=== PATIENT | female | born 1970 | race African-American/Black ===

== ENCOUNTER 2016-08-10 18:17 | Emergency (ER) | payer OTHER ==
--- NOTE | ~2016-08-10 | CR72 ---
[facility] A Service of [facility] RADIOLOGY TEXT RESULTS PATIENT: MAURICE BELTRÁN LOCATION: SED : 66 UNIT #: [id number] AGE: [address]: Alfredo Alvarez MD SEX: F ORDER DR: [id number] [place] [id number] MR#: [id number] Acc #: [id number] NAME: MAURICE BELTRÁN : 1970 SEX: F STUDY DATE/TIME: 08/10/2016 18:19 UNIT: SED ROOM: STUDY DESCRIPTION: CR Chest Single View Portable Attending Physician: Alfredo Alvarez M.D. Ordering Physician: Jeremías Chery M.D. Primary Care Physician: Conor Orantes Sr., M.D. MEDICAL IMAGING REPORT This report is preliminary unless electronic signature is present. EXAM Portable AP view of the chest COMPARISON May and January 04, 2011. HISTORY 46-year-old female with cough and chest congestion for 30 days. History of asthma. FINDINGS Cardiomediastinal silhouette is within normal limits. Stable calcified granulomas in the right lung. No evidence of pneumothorax, pleural effusion or acute airspace disease. IMPRESSION 1. No acute radiographic abnormality of the chest. 2. Stable calcified granulomas in the right lung. Dictated by... Ad Matos M.D. THIS IS AN ELECTRONICALLY VERIFIED REPORT Ad Matos M.D. at 08/11/2016 5:22 PM BLM/pcl TD: 08/10/2016 21:49 JOB #: [id number] [facility] A Service [facility] RADIOLOGY TEXT RESULTS PATIENT: MAURICE BELTRÁN LOCATION: SED : 66 UNIT #: [id number] AGE: [address]: Alfredo Alvarez MD SEX: F ORDER DR: MEDICAL IMAGING REPORT Page 1 of 1
--- NOTE | ~2016-08-10 | EKG ---
PATIENT: MAURICE BELTRÁN UNIT #: [id number] Ventricular Rate: 85 BPM Atrial Rate: 85 BPM P-R Interval: 308 ms QRS Duration: 84 ms Q-T Interval: 352 ms QTC Calculation(Bezet): 418 ms P Ovid: 46 degrees Calculated R Ovid: 21 degrees Calculated T Ovid: 17 degrees Diagnosis Line: Sinus rhythm with 1st degree A-V block Diagnosis Line: Possible Left atrial enlargement Diagnosis Line: Borderline ECG Diagnosis Line: When compared with ECG of 05-DEC-2014 20:06, Diagnosis Line: UT interval has increased Diagnosis Line: Confirmed by STALIN YOU MD ([id number]) on Diagnosis Line: 08/13/2016 12:03:17 PM INTERPRETING MD: AVELINO PHAN
[~2016-08-10 18:17] MED LIST: ALBUTEROL17 GM; ALBUTEROL17 GM INH; B/P PILL; CYMBALTA PO; FLEXERIL10 MG; LISINOPRIL-HCTZ1 T14 PO; LISINOPRIL-HCTZ1 T19; MOBIC; NORVASC; PHENERGAN25 MG PO
[2016-08-10 18:41] LABS: BASOPHIL# 0.1 X10e3 (0-0.3); BASOPHIL% 1.4 % (0-2.5); EOSINOPHIL# 0.2 X10e3 (0-0.7); EOSINOPHIL% 2.9 % (0.0-7.0); HEMATOCRIT 37.6 % (35.0-45.0); HEMOGLOBIN 12.8 gm/dL (12.0-16.0); LYMPHOCYTE# 2.5 X10e3 (1.0-3.5); MEAN CELL VOLUME 85.6 FL (83-96); MEAN CORPUSCULAR HEMOGLOBIN 29.1 PG (28-34); MEAN PLATELET VOLUME 7.7 FL (6.5-11.5); MONOCYTE# 0.9 X10e3 (0-1.0); MONOCYTE% 11.3 % (3.0-12.0); NEUTROPHIL% 52.4 % (40-75); PLATELET COUNT 464 X10e3 (140-420); RED BLOOD COUNT 4.39 X10e (3.90-5.30); RED CELL DISTRIBUTION WIDTH 15.9 % (11.0-15.5); WHITE BLOOD COUNT 7.7 X10e3 (4.0-10.5)
[2016-08-10 18:45] LABS: DIFF IND NO
[2016-08-10 18:47] LABS: POC - CKMB <1.0 ng/mL (0.0-7.9)
[2016-08-10 18:48] LABS: POC - TROPONIN <0.05 ng/mL (<=0.05)
[2016-08-10 18:59] LABS: ALBUMIN SERUM 4.1 g/dL (3.5-5.0); BILIRUBIN, DIRECT 0.3 mg/dL (0.0-0.2); BILIRUBIN,INDIRECT 0.2 mg/dL (0.0-0.9); BILIRUBIN,TOTAL 0.5 mg/dL (0.2-2.0); CALCIUM SERUM 9.1 mg/dL (8.4-10.2); CREATININE SERUM 0.6 mg/dL (0.6-1.4); GLOM FILT RATE Estimated 124.9 mL/min (>60); POTASSIUM 4.2 mmol/L (3.5-5.1); PROTEIN TOTAL SERUM 7.7 g/dL (6.0-8.3)
== END 2016-08-10 19:40 | disposition home or self-care (01) ==
LOC: SED 18:17
PROVIDERS: Emergency Medicine
DX: J40 Bronchitis, not specified as acute or chronic (principal); T78.40XA Allergy, unspecified, initial encounter
CPT/HCPCS: 71010; 80048; 80076; 82553; 83880; 84484; 85025; 93005; 94640; 96361; 96374; 99284; J2930